=== PATIENT | male | born 2005 | race Caucasian/White ===

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

== ENCOUNTER 2024-02-27 06:59 | Emergency (ER) | payer SELFPAY ==
[~2024-02-27] VITALS: Ht 175.3 cm; Wt 77.1 kg
[~2024-02-27 06:59] MED LIST changes: +CLIN300 PO; +CODACE30 PO; +PREDNISOLO15 MG/5 ML PO
[2024-02-27] MEDS ORDERED: CLIN150 PO (08:34)
[2024-02-27] MEDS ORDERED: HYDR1TAB94 PO (08:34)
[2024-02-27] MEDS ORDERED: HYDROcodone 5-APAP 325 TAB PO ONE (08:35)
[2024-02-27] MEDS ORDERED: Clindamycin HCl 150 MG Cap PO ONE (08:35)
[2024-02-27 08:59] VITALS: BP 136/97
== END 2024-02-27 09:05 | disposition home or self-care (01) ==
LOC: ER 06:59
DX: K04.7 Periapical abscess without sinus (principal); Z79.52 Long term (current) use of systemic steroids; Z79.899 Other long term (current) drug therapy; Z88.0 Allergy status to penicillin
CPT/HCPCS: 99282; A9270